=== PATIENT | female | born 1945 | race Caucasian/White ===

== ENCOUNTER 2016-10-08 10:40 | Inpatient (IN) | payer OTHER, MEDICAID ==
[~2016-10-08] VITALS: Ht 149.9 cm; Wt 41.2 kg
[~2016-10-08 10:40] MED LIST: ALBU1AER4 IN; AMIT PO; ASPI81TA27 PO; ESOM40CA39 PO; FUR40T PO; HYDR-531 PO; MISCCAP PO; MORP1CAP13 PO; POT10T PO; SIMV10TA73 PO; SUCR1TAB38 PO; TIOTCAP INH; TRAM50TA2 PO
[2016-10-08 11:55] LABS: Basophils # (auto) 0 uL; Eosinophils # (auto) 0.1 uL; Eosinophils % (auto) 2.1 % (0.0-7.0); Hematocrit 27.5 % (36.0-46.0); Hemoglobin 9.2 g/dL (12.2-16.2); Lymphocytes # (auto) 0.2 uL; Lymphocytes % (auto) 4.9 % (10.0-50.0); Mean Corpuscular Hemoglobin 31.4 pg (28.0-32.0); Mean Corpuscular Hgb Conc. 33.5 g/dL (32.0-36.0); Mean Corpuscular Volume 93.9 fL (80.0-100.0); Mean Platelet Volume 6.2 fL (7.4-10.4); Monocytes # (auto) 0.4 uL; Monocytes % (auto) 8.9 % (0.0-12.0); Neutrophils # (auto) 4.1 uL; Neutrophils % (auto) 84.1 % (37.0-80.0); Platelet Count (auto) 142 10^3/uL (140-450); Red Cell Distribution Width 18.9 % (11.6-16.0); White Blood Cell 4.9 10^3/uL (4.4-10.8)
[2016-10-08] MEDS ORDERED: ALBUTEROL SULF 2.5 MG/0.5ML(0.5%) NEB SOLN NEB STA (12:36)
[2016-10-08] MEDS ORDERED: cefTRIAXone 1GM/50ML D5W 50 ML IV ONE (12:45)
[2016-10-08] MEDS ORDERED: methylPREDNISolone SOD SUCC 125 MG/2 ML VL IV ONE (12:45)
[2016-10-08] MEDS ORDERED: IPRATROPIUM BROM 0.5 MG/2.5ML INH SOL NEB ONE (12:45)
[2016-10-08 13:23] LABS: BUN/Creatinine Ratio 20.8; Potassium 3.7 mmol/L (3.5-5.1)
[2016-10-08 13:24] LABS: Albumin 2.3 g/dL (3.4-5.0); Bilirubin, Total 0.5 mg/dL (0.2-1.0); Calcium 7.3 mg/dL (8.5-10.1); Total Protein 6.3 g/dL (6.4-8.2)
[2016-10-08 13:45] LABS: B-Type Natriuretic Peptide 106.05 pg/mL (0-100); Temperature: 23.1 C (20.0-25.0)
[2016-10-08] MEDS ORDERED: MORPHINE SULF INJ 2 MG/ML SYRINGE 1ML IV PRN (14:30)
[2016-10-08] MEDS ORDERED: PROMETHAZINE HCL 25 MG/ML 1ML IV PRN (14:30)
[2016-10-08] MEDS ORDERED: TEMAZEPAM 15 MG CAP PO PRN (14:30)
[2016-10-08] MEDS ORDERED: ACETAMINOPHEN 500 MG TAB PO PRN (14:30)
[2016-10-08] MEDS ORDERED: NITROGLYCERIN 0.4 MG SL TAB SL PRN (14:30)
[2016-10-08] MEDS ORDERED: LORazepam 0.5 MG TAB PO PRN (14:30)
[2016-10-08] MEDS ORDERED: OSELTAMIVIR 75 MG CAP PO ONE (14:30)
[2016-10-08] MEDS ORDERED: ALBUTEROL SULF 2.5 MG/0.5ML(0.5%) NEB SOLN NEB PRN (14:30)
[2016-10-08] MEDS ORDERED: DOXYCYCLINE HYC 100MG/250ML 250 ML IV SCH (14:30)
[2016-10-08 14:59] LABS: Urine Bilirubin Negative (Negative); Urine Blood TRACE /uL (Negative); Urine Color Yellow (Yellow); Urine Glucose Normal (Normal); Urine Ketone Negative (Negative); Urine Nitrite Negative (Negative); Urine RBC 31 /hpf (0 - 4); Urine Squamous Epithelial Cell FEW /hpf (<5); Urine pH 7.5 (5.0-8.0)
[2016-10-08] MEDS: MAGNESIUM SULFATE 1GM/100ML 100 ML IV SCH ×2 (15:45→18:17)
[2016-10-08] MEDS ORDERED: LEVOFLOXACIN 500MG 100 ML IV ONE (16:00)
[2016-10-08] MEDS: methylPREDNISolone SOD SUCC 40 MG/ML VL IV SCH ×2 (18:18→23:49)
[2016-10-08] MEDS: HYDROcodone-ACET 5/325MG TAB PO PRN (18:38)
[2016-10-08] MEDS: ALBUTEROL SULF 2.5 MG/0.5ML(0.5%) NEB SOLN NEB SCH (20:02)
[2016-10-08] MEDS: IPRATROPIUM BROM 0.5 MG/2.5ML INH SOL NEB SCH (20:02)
[2016-10-08] MEDS: SODIUM CHLOR 0.9% PF (SALINE LOCK) 10ML VIAL IV SCH (20:04)
[2016-10-08] MEDS: OSELTAMIVIR 30 MG CAP PO SCH (20:04)
[2016-10-08] MEDS ORDERED: OSELTAMIVIR 75 MG CAP PO SCH (22:00)
[2016-10-08 22:24] VITALS: BP 102/41
[2016-10-09] MEDS: IPRATROPIUM BROM 0.5 MG/2.5ML INH SOL NEB SCH ×4 (01:10→19:36)
[2016-10-09] MEDS: ALBUTEROL SULF 2.5 MG/0.5ML(0.5%) NEB SOLN NEB SCH ×4 (01:10→19:36)
[2016-10-09 02:56] VITALS: BP 102/41
[2016-10-09] MEDS: OSELTAMIVIR 30 MG CAP PO SCH ×3 (04:32→19:52)
[2016-10-09 05:06] VITALS: BP 132/79
[2016-10-09] MEDS: methylPREDNISolone SOD SUCC 40 MG/ML VL IV SCH ×3 (05:43→18:16)
[2016-10-09] MEDS: SODIUM CHLOR 0.9% PF (SALINE LOCK) 10ML VIAL IV SCH ×3 (05:43→22:08)
[2016-10-09 08:38] VITALS: BP 127/64
[2016-10-09] MEDS: LACTULOSE 20Gm/30ML SOLN PO PRN ×2 (09:17→20:47)
[2016-10-09] MEDS: ENOXAPARIN SOD 40 MG/0.4 ML SYRINGE SC SCH (09:17)
[2016-10-09] MEDS: MORPHINE SULF INJ 2 MG/ML SYRINGE 1ML IV PRN ×4 (09:17→22:18)
[2016-10-09] MEDS: LEVOFLOXACIN 500MG 100 ML IV SCH (09:17)
[2016-10-09 12:42] VITALS: BP 132/70
[2016-10-09 17:26] VITALS: BP 120/66
[2016-10-09] MEDS: HYDROcodone-ACET 5/325MG TAB PO PRN (20:46)
[2016-10-09 22:00] VITALS: BP 101/49
[2016-10-10] MEDS: methylPREDNISolone SOD SUCC 40 MG/ML VL IV SCH ×3 (00:14→12:00)
[2016-10-10] MEDS: MORPHINE SULF INJ 2 MG/ML SYRINGE 1ML IV PRN ×2 (02:54→08:25)
[2016-10-10 05:00] VITALS: BP 153/69
[2016-10-10] MEDS: OSELTAMIVIR 30 MG CAP PO SCH (05:00)
[2016-10-10] MEDS: SODIUM CHLOR 0.9% PF (SALINE LOCK) 10ML VIAL IV SCH (05:42)
[2016-10-10] MEDS: IPRATROPIUM BROM 0.5 MG/2.5ML INH SOL NEB SCH ×3 (06:20→12:00)
[2016-10-10] MEDS: ALBUTEROL SULF 2.5 MG/0.5ML(0.5%) NEB SOLN NEB SCH ×3 (06:21→12:00)
[2016-10-10 09:00] VITALS: BP 125/61
[2016-10-10] MEDS ORDERED: FLUCONAZOLE 100MG/50ML 50 ML IV ONE (09:00)
[2016-10-10] MEDS: LEVOFLOXACIN 500MG 100 ML IV SCH (10:00)
[2016-10-10] MEDS: ENOXAPARIN SOD 40 MG/0.4 ML SYRINGE SC SCH (10:00)
== END 2016-10-10 12:50 | disposition home or self-care (01) | DRG 193 ==
LOC: EDBD 10:40 → ER 10:47 → TELE 10:48 → TELE-EAST 18:01
PROVIDERS: ADMIT Internal Medicine; ATTEND Family Medicine
DX: J18.9 Pneumonia, unspecified organism (principal); J96.20 Acute and chronic respiratory failure, unspecified whether with hypoxia or hypercapnia; J44.1 Chronic obstructive pulmonary disease with (acute) exacerbation; N39.0 Urinary tract infection, site not specified; B37.49 Other urogenital candidiasis; Z68.1 Body mass index [BMI] 19.9 or less, adult; I11.0 Hypertensive heart disease with heart failure; I50.9 Heart failure, unspecified; M19.90 Unspecified osteoarthritis, unspecified site; E83.42 Hypomagnesemia; C51.2 Malignant neoplasm of clitoris; D50.9 Iron deficiency anemia, unspecified; Z87.891 Personal history of nicotine dependence; Z99.81 Dependence on supplemental oxygen; Z80.0 Family history of malignant neoplasm of digestive organs; Z92.21 Personal history of antineoplastic chemotherapy; Z92.3 Personal history of irradiation
CPT/HCPCS: 36415; 71010; 80053; 81001; 83605; 83735; 83880; 84484; 85025; 87040; 87400; 93005; 93306; 94640; 94761; 96374; 96375; 97001; G9035; J0696; J1450; J1956

== ENCOUNTER 2018-07-18 17:50 | Emergency (ER) | payer OTHER, MEDICAID ==
[~2018-07-18] VITALS: Ht 152.4 cm; Wt 43.5 kg
[2018-07-18] MEDS ORDERED: SODIUM CHLORIDE 0.9% 500 ML IVB ONE (18:21)
[2018-07-18 19:21] LABS: Urine Bacteria FEW /hpf (None Seen); Urine Blood 1+ /uL (Negative); Urine Specific Gravity 1.005 (1.001-1.035); Urine WBC 52 /hpf (0 - 5)
[2018-07-18 19:54] LABS: Basophils # (auto) 0 uL; Basophils % (auto) 0.1 % (0.0-2.0); Eosinophils # (auto) 0.1 uL; Eosinophils % (auto) 1.4 % (0.0-7.0); Hematocrit 30.2 % (36.0-46.0); Hemoglobin 10.1 g/dL (12.2-16.2); Lymphocytes # (auto) 1.3 uL; Lymphocytes % (auto) 17.4 % (10.0-50.0); Mean Corpuscular Hemoglobin 31.8 pg (28.0-32.0); Mean Corpuscular Hgb Conc. 33.2 g/dL (32.0-36.0); Mean Corpuscular Volume 95.7 fL (80.0-100.0); Monocytes # (auto) 0.5 uL; Monocytes % (auto) 6.6 % (0.0-12.0); Neutrophils # (auto) 5.7 uL; Neutrophils % (auto) 74.5 % (37.0-80.0); Platelet Count (auto) 268 10^3/uL (140-450); Red Blood Cells 3.16 10^6/uL (4.0-5.20); Red Cell Distribution Width 14.6 % (11.8-14.3); White Blood Cell 7.7 10^3/uL (4.4-10.8)
[2018-07-18 20:01] LABS: INR 0.98 (0.9-1.15); Partial Thromboplastin Time 22.8 sec (23.78-33.04); Prothrombin Time 10.5 sec (9.27-12.13)
[2018-07-18 20:07] LABS: Magnesium 1.3 mg/dL (1.6-2.6)
[2018-07-18 20:11] LABS: Albumin 2.6 g/dL (3.4-5.0); Anion Gap 10 (5-15); Aspartate Aminotransferase 36 U/L (15-37); BUN/Creatinine Ratio 21.8; Blood Urea Nitrogen 12 mg/dL (7-18); Calcium 7.7 mg/dL (8.5-10.1); Carbon Dioxide 29 mmol/L (21-32); Chloride 97 mmol/L (98-107); GFR African American 139 mL/min; GFR Non-African American 115 mL/min; Glucose 96 mg/dL (74-106); Potassium 3.7 mmol/L (3.5-5.1); Sodium 136 mmol/L (136-145)
[2018-07-18 20:19] LABS: Alanine Aminotransferase 22 U/L (13-56); Alkaline Phosphatase 79 U/L (45-117); Bilirubin, Total 0.1 mg/dL (0.2-1.0); Total Protein 7.4 g/dL (6.4-8.2)
[2018-07-18 21:01] VITALS: BP 126/62
== END 2018-07-18 21:07 | disposition home or self-care (01) ==
LOC: EDBD 17:50 → ER 17:50
DX: N39.0 Urinary tract infection, site not specified (principal); F10.129 Alcohol abuse with intoxication, unspecified; I11.0 Hypertensive heart disease with heart failure; I50.9 Heart failure, unspecified; J44.9 Chronic obstructive pulmonary disease, unspecified; F17.210 Nicotine dependence, cigarettes, uncomplicated; Z79.82 Long term (current) use of aspirin; Z79.899 Other long term (current) drug therapy; Z90.49 Acquired absence of other specified parts of digestive tract
CPT/HCPCS: 36415; 70450; 71045; 80053; 80320; 81001; 83735; 84484; 85025; 85610; 85730; 93005; 94761; 99285; J7030; 51702